=== PATIENT | male | born 1990 | race African-American/Black ===

== ENCOUNTER 2024-07-31 10:10 | Observation (INO) | payer OTHER ==
[2024-07-31 10:25] LABS: Glucose,Whole Blood 83 mg/dL (70-110)
--- NOTE | 2024-07-31 10:30 | ED ---
Seizure HPI - General Chief Complaint: Seizure Stated Complaint: Seizure Time Seen by Provider: 07/31/24 10:13 Source: patient, EMS, RN notes reviewed Mode of arrival: EMS Limitations: no limitations - History of Present Illness Initial Comments: 34-year-old male presents emergency department chief complaint of seizure. Patient checked into [facility] yesterday for alcohol abuse. He states he has not received any Ativan for his withdrawal symptoms. Patient states that he did bite his tongue. Patient has no history of seizures he is nondiabetic. Patient states his blood sugar this morning was 80. Patient states he is very nausea complaint of head discomfort. No visual strippings no focal weakness denies any hallucinations. Patient states he does not withdraw significantly when he does not drink. His last drink was yesterday. - Related Data Allergies Allergy/AdvReac Type Severity Reaction Status Date / Time No Known Allergies Allergy Verified 07/31/24 10:16 Review of Systems ROS Statement: Those systems with pertinent positive or pertinent negative responses have been documented in the HPI. ROS Other: All systems not noted in ROS Statement are negative. Past Medical History Past Medical History: Diabetes Mellitus, Hypertension Additional Past Medical History / Comment(s): pancreatitis, alcohol use History of Any Multi-Drug Resistant Organisms: None Reported Additional Past Surgical History / Comment(s): pancrease, tip of finger amputated Past Psychological History: No Psychological Hx Reported Smoking Status: Former smoker Past Alcohol Use History: Daily Past Drug Use History: None Reported General Exam Limitations: no limitations General appearance: alert, in no apparent distress Head exam: Present: atraumatic, normocephalic, normal inspection Eye exam: Present: normal appearance, PERRL, EOMI. Absent: scleral icterus, conjunctival injection, periorbital swelling ENT exam: Present: mucous membranes moist. Absent: normal oropharynx (Bite radha, laceration right side of tongue) Neck exam: Present: normal inspection, full ROM. Absent: tenderness, meningismus, lymphadenopathy Respiratory exam: Present: normal lung sounds bilaterally. Absent: respiratory distress, wheezes, rales, rhonchi, stridor Cardiovascular Exam: Present: normal rhythm, tachycardia, normal heart sounds. Absent: systolic murmur, diastolic murmur, rubs, gallop, clicks GI/Abdominal exam: Present: soft, normal bowel sounds. Absent: distended, tenderness, guarding, rebound, rigid Course Vital Signs 07/31/24 10:11 Temperature 98.1 F Pulse Rate 102 H Respiratory 18 Rate Blood Pressure 148/100 O2 Sat by Pulse 100 Oximetry Medical Decision Making - Medical Decision Making Was pt. sent in by a medical professional or institution (, SESAR, PROSTHODONTIST/EDUCATOR, urgent care, hospital, or senior living...) When possible be specific @ -[facility] Did you speak to anyone other than the patient for history (EMS, parent, family, police, friend...)? What history was obtained from this source @ -No Did you review nursing and triage notes (agree or disagree)? Why? @ -I reviewed and agree with nursing and triage notes Were old charts reviewed (outside hosp., previous admission, EMS record, old EKG, old radiological studies, urgent care reports/EKG's, senior living records)? Report findings @ -No old charts were reviewed Differential Diagnosis (chest pain, altered mental status, abdominal pain women, abdominal pain men, vaginal bleeding, weakness, fever, dyspnea, syncope, headache, dizziness, GI bleed, back pain, seizure, CVA, palpatations, mental he alth, musculoskeletal)? @ -Differential Seizure: Recurrent seizure disorder, febrile seizure, alcohol withdrawal, stimulants, meningitis, encephalitis, intercranial hemorrhage, intracranial tumor, stroke, eclampsia, thyrotoxicosis, hypocalcemia, hyponatremia, hypernatremia, hypomagnesemia, psychogenic, this is not meant to be an all-inclusive list. EKG interpreted by me (3pts min.). @ -As above X-rays interpreted by me (1pt min.). @ -None done CT interpreted by me (1pt min.). @ -CT brain showing no acute intracranial hemorrhage, no mass no mass effect U/S interpreted by me (1pt. min.). @ -None done What testing was considered but not performed or refused? (CT, X-rays, U/S, labs)? Why? @ -None What meds were considered but not given or refused? Why? @ -None Did you discuss the management of the patient with other professionals (professionals i.e. SESAR Santiago, PROSTHODONTIST/EDUCATOR, lab, RT, psych nurse, dialysis social worker, vp data, teacher, budget officer, keycase assembler)? Give summary @ -Dr. Meadows for admission Was smoking cessation discussed for >3mins.? @ -No Was critical care preformed (if so, how long)? @ -No Were there social determinants of health that impacted care today? How? (Homelessness, low income, unemployed, alcoholism, drug addiction, transportation, low edu. Level, literacy, decrease access to med. care, residential, rehab)? @ -No Was there de-escalation of care discussed even if they declined (Discuss DNR or withdrawal of care, Hospice)? DNR status @ -No What co-morbidities impacted this encounter? (DM, HTN, Smoking, COPD, CAD, Cancer, CVA, ARF, Chemo, Hep., AIDS, mental health diagnosis, sleep apnea, morbid obesity)? @ -Alcohol abuse Was patient admitted / discharged? Hospital course, mention meds given and route, prescriptions, significant lab abnormalities, going to OR and other pert inent info. @ -[Admitted patient presented for new onset seizure, most likely alcohol withdrawal seizure. Patient will be admitted for further observation, withdrawal, neurology evaluation Undiagnosed new problem with uncertain prognosis? @ -No Drug Therapy requiring intensive monitoring for toxicity (Heparin, Nitro, Insulin, Cardizem)? @ -No Were any procedures done? @ -No Diagnosis/symptom? @ -Alcohol withdrawal seizure Acute, or Chronic, or Acute on Chronic? @Acute Uncomplicated (without systemic symptoms) or Complicated (systemic symptoms)? @ -Complicated Side effects of treatment? @ -No Exacerbation, Progression, or Severe Exacerbation? @ -No Poses a threat to life or bodily function? How? (Chest pain, [place], NE, pneumonia, PE, COPD, DKA, ARF, appy, cholecystitis, CVA, Diverticulitis, Homicidal, Suicidal, threat to staff... and all critical care pts) @ -Yes alcohol withdrawal seizure - Lab Data Result diagrams: 07/31/24 10:33 07/31/24 10:33 Lab Results 07/31/24 07/31/24 07/31/24 Range/Units 10:19 10:33 10:33 WBC 4.6 (3.8-10.6) k/uL RBC 3.95 L (4.30-5.90) m/uL Hgb 13.5 (13.0-17.5) gm/dL Hct 41.5 (39.0-53.0) % MCV 105.1 H (80.0-100.0) fL MCH 34.3 (25.0-35.0) pg MCHC 32.6 (31.0-37.0) g/dL RDW 15.1 (11.5-15.5) % Plt Count 148 L (150-450) k/uL MPV 9.7 Neutrophils % 40 % Lymphocytes % 47 % Monocytes % 7 % Eosinophils % 2 % Basophils % 1 % Neutrophils # 1.8 (1.3-7.7) k/uL Lymphocytes # 2.1 (1.0-4.8) k/uL Monocytes # 0.3 (0-1.0) k/uL Eosinophils # 0.1 (0-0.7) k/uL Basophils # 0.0 (0-0.2) k/uL Macrocytosis Moderate Sodium 138 (137-145) mmol/L Potassium 3.7 (3.5-5.1) mmol/L Chloride 99 (98-107) mmol/L Carbon Dioxide 23 (22-30) mmol/L Anion Gap 16 mmol/L BUN 9 (9-20) mg/dL Creatinine 0.66 (0.66-1.25) mg/dL Est GFR (CKD-EPI)AfAm >90 (>60 ml/min/1.73 sqM) Est GFR (CKD-EPI)NonAf >90 (>60 ml/min/1.73 sqM) Glucose 67 L (74-99) mg/dL POC Glucose (mg/dL) 83 (70-110) mg/dL POC Glu Occupational Therapy Professor ID Sage Parker Calcium 10.0 (8.4-10.2) mg/dL Magnesium 1.5 L (1.6-2.3) mg/dL Total Bilirubin 2.1 H (0.2-1.3) mg/dL AST 130 H (17-59) U/L ALT 62 H (4-49) U/L Alkaline Phosphatase 212 H (38-126) U/L Total Protein 8.0 (6.3-8.2) g/dL Albumin 5.0 (3.5-5.0) g/dL Lipase 64 (23-300) U/L 07/31/24 07/31/24 Range/Units 11:45 12:33 WBC (3.8-10.6) k/uL RBC (4.30-5.90) m/uL Hgb (13.0-17.5) gm/dL Hct (39.0-53.0) % MCV (80.0-100.0) fL MCH (25.0-35.0) pg MCHC (31.0-37.0) g/dL RDW (11.5-15.5) % Plt Count (150-450) k/uL MPV Neutrophils % % Lymphocytes % % Monocytes % % Eosinophils % % Basophils % % Neutrophils # (1.3-7.7) k/uL Lymphocytes # (1.0-4.8) k/uL Monocytes # (0-1.0) k/uL Eosinophils # (0-0.7) k/uL Basophils # (0-0.2) k/uL Macrocytosis Sodium (137-145) mmol/L Potassium (3.5-5.1) mmol/L Chloride (98-107) mmol/L Carbon Dioxide (22-30) mmol/L Anion Gap mmol/L BUN (9-20) mg/dL Creatinine (0.66-1.25) mg/dL Est GFR (CKD-EPI)AfAm (>60 ml/min/1.73 sqM) Est GFR (CKD-EPI)NonAf (>60 ml/min/1.73 sqM) Glucose (74-99) mg/dL POC Glucose (mg/dL) 50 L 151 H (70-110) mg/dL POC Glu Occupational Therapy Professor ID Sage Parker Calcium (8.4-10.2) mg/dL Magnesium (1.6-2.3) mg/dL Total Bilirubin (0.2-1.3) mg/dL AST (17-59) U/L ALT (4-49) U/L Alkaline Phosphatase (38-126) U/L Total Protein (6.3-8.2) g/dL Albumin (3.5-5.0) g/dL Lipase (23-300) U/L - EKG Data -: EKG Interpreted by Me EKG Comments: Performed at 10: 17 sinus tachycardia rate of 106 [place] 151 QRS 98 QT/QTc 339/401 Disposition Clinical Impression: Alcohol withdrawal seizure Disposition: ADMITTED IP TO THIS [facility] Condition: Fair Referrals: None,Stated [REFERRING] - 1-2 days Time of Disposition: 12:54
[2024-07-31] MEDS: ONDANSETRON 4 MG/2 ML VIAL IVP STA (10:34)
[2024-07-31] MEDS: SODIUM CHLORIDE 0.9% 1,000 ML IV STA (10:34)
[2024-07-31] MEDS: LORazepam 2 MG/ML INJ IV STA (10:38)
[2024-07-31 10:40] LABS: Basophils % (A) 1 %; Eosinophils # (A) 0.1 k/uL (0-0.7); Eosinophils % (A) 2 %; HCT 41.5 % (39.0-53.0); HGB 13.5 gm/dL (13.0-17.5); Lymphocytes # (A) 2.1 k/uL (1.0-4.8); Lymphocytes % (A) 47 %; MCH 34.3 pg (25.0-35.0); MCHC 32.6 g/dL (31.0-37.0); MCV 105.1 fL (80.0-100.0); Macrocytosis Moderate; Mean Platelet Volume 9.7; Monocytes # (A) 0.3 k/uL (0-1.0); Monocytes % (A) 7 %; Neutrophils # (A) 1.8 k/uL (1.3-7.7); Neutrophils % (A) 40 %; Platelet Count 148 k/uL (150-450); RBC 3.95 m/uL (4.30-5.90); RDW 15.1 % (11.5-15.5); WBC 4.6 k/uL (3.8-10.6)
[2024-07-31] MEDS: KETOROLAC 15 MG/ML 1 ML VIAL IVP STA (10:51)
[2024-07-31] MEDS: levETIRAcetam IV 500 MG/5 ML VIAL IVP STA (11:00)
[2024-07-31 11:08] LABS: ALT 62 U/L (4-49); African American GFR (CKD) >90 (>60 ml/min/1.73 sqM); Anion Gap 16 mmol/L; Blood Urea Nitrogen 9 mg/dL (9-20); Carbon Dioxide 23 mmol/L (22-30); Chloride 99 mmol/L (98-107); Glucose 67 mg/dL (74-99); Lipase 64 U/L (23-300); Non-African American GFR(CKD) >90 (>60 ml/min/1.73 sqM); Sodium 138 mmol/L (137-145); Total Bilirubin 2.1 mg/dL (0.2-1.3)
[2024-07-31 11:22] LABS: AST 130 U/L (17-59); Alkaline Phosphatase 212 U/L (38-126); Magnesium 1.5 mg/dL (1.6-2.3); Potassium 3.7 mmol/L (3.5-5.1)
[2024-07-31 11:47] LABS: Glucose,Whole Blood 50 mg/dL (70-110)
--- NOTE | 2024-07-31 12:11 | CT ---
EXAMINATION TYPE: CT brain wo con DATE OF EXAM: 07/31/2024 COMPARISON: None CLINICAL INDICATION: Male, 34 years old with history of new onset seizures; [facility], TECHNIQUE: CT of the brain performed without contrast with sagittal and coronal reformats. Automated exposure control for dose reduction was used. FINDINGS: There is no acute intracranial hemorrhage, mass effect, or midline shift identified. The ventricles and sulci are within normal limits in size. The globes are intact and the visualized sinuses are osiel ar. IMPRESSION: No acute intracranial hemorrhage, mass effect, or midline shift is seen. [facility], , 07/31/2024 12:08 PM
[2024-07-31 12:35] LABS: Glucose,Whole Blood 151 mg/dL (70-110)
[2024-07-31] MEDS ORDERED: LORazepam 2 MG/ML INJ IV PRN ×3 (12:51)
[2024-07-31] MEDS ORDERED: LORazepam 0.5 MG TAB PO PRN (12:51)
[2024-07-31] MEDS ORDERED: NALOXONE 0.4 MG/ML 1 ML VIAL IV PRN (12:55)
[2024-07-31] MEDS ORDERED: ONDANSETRON 4 MG/2 ML VIAL IVP PRN (12:55)
[2024-07-31] MEDS ORDERED: DEXTROSE 50% SYRINGE 50 ML IVP PRN ×4 (13:11→16:45)
[2024-07-31] MEDS: MAGNESIUM OXIDE 400 MG TAB PO STA (13:26)
[2024-07-31] MEDS: THIAMINE 100 MG/ML 2 ML VIAL IM STA (13:35)
[2024-07-31] MEDS: IBUPROFEN 400 MG TAB PO PRN (14:48)
--- NOTE | 2024-07-31 15:09 | P.HPIM ---
History of Present Illness H&P Date: 07/31/24 History of Presenting Illness: Patient is a 34-year-old male with a past medical history of daily alcohol abuse, chronic pancreatitis, hypertension, and insulin-dependent diabetes mellitus. He reports baseline drinking 1-2 fifths of alcohol daily but reports cut back recently and only drinking a fifth of liquor daily with last drink being yesterday when he checked into [place]. Patient was admitted to [facility] and had his blood sugar checked which was 80 but he was feeling slightly nauseous with some mild headache so he sat down and was witnessed to have tonic-clonic seizure-like activity lasting a reported 4 minutes duration and EMS was called for transport to the hospital for evaluation. Patient denies experiencing involuntary loss of bowel or bladder during this activity but did bite his tongue and right side of his cheek. Patient currently denies having any headache, lightheadedness, changes in vision or hearing, chest pain, p alpitations, shortness of breath, or experiencing any numbness/tingling/weakness in his extremities. Patient reports mild nausea and states my stomach feels a little upset like my pancreas is acting up again. He denies any episodes of vomiting. Upon arrival to our facility patient underwent evaluation in the emergency department. Vital signs upon arrival show blood pressure 140, heart rate 102, respiratory rate 18, temp 98.1 F, and SpO2 100% on room air. EKG completed showing sinus tachycardia at 106 bpm with nonspecific T wave changes and no noted ST abnormalities upon personal review and interpretation. CT brain completed negative for acute intercranial process. Pleated and reviewed. CBC showing macrocytosis with MCV of 105.1 and thrombocytopenia with platelet count of 148. Blood glucose initially 83 at time of arrival, CBC showing low glucose of 67. Magnesium also low at 1.5. Liver profile showing hyperbilirubinemia with bilirubin of 2.1 and transaminitis with AST of 130, ALT of 62, and alkaline phosphatase of 212. Lipase normal findings at 64. Patient admitted under our services for alcohol withdrawal seizure and to undergo medically assisted detox. Review of systems: Pertinent positives and negatives as discussed in HPI, a complete review of systems was performed and all other systems are negative. Physical exam: Vital signs reviewed and stable. General: Nontoxic, no distress and appears stated age. Derm: Skin warm and dry, normal coloration for ethnicity. Head: Atraumatic, normocephalic and symmetric. Eyes: EOM's intact, no lid lag, and anicteric sclera Mouth: no lip lesions, mucus membranes moist. Patient has small abrasion/bite wound to right lateral side of tongue. Cardiovascular: regular rate and rhythm with normal S1S2, no murmur, positive posterior tibial pulses bilaterally, and cap refill < 2 seconds. Lungs: Respirations even, regular, and unlabored on room air. Lungs CTA bilaterally, no rhonchi, no rales, no wheezing, and no accessory muscle usage. Abdominal: soft, nontender to palpation, no guarding, no appreciable organomegaly Ext: ROM intact. No gross muscle atrophy, no edema, no contractures Neuro: Speech clear, face symmetrical and CN II-XII grossly intact with no noted focal neuro deficits Psych: Alert and oriented to person, place, time, and situation. Appropriate and pleasant affect. Assessment and Plan of Care: Alcohol withdraw in active alcoholic Alcohol withdrawal seizure Transaminitis with hyperbilirubinemia, secondary to above Hypomagnesemia -Order placed for monitoring of CIWA scores and patient to be medicated with Ativan 0.5 mg every 4 hours as needed for CIWA score of 4-5, Ativan 1 mg every 4 hours for CIWA score of 6-7, Ativan 2 mg every 3 hours CIWA score of 8-9, and Ativan 2 mg every 2 hours forr CIWA score of 10 or greater.. -Thiamine 100 mg daily, and Multivitamin daily, and Folate 1 mg daily -Seizure, fall, and aspiration precautions in place. -Continued close monitoring of electrolytes and replace as needed. -Telemetry monitoring. -Patient was given loading dose of Keppra 1000 mg in the emergency department, denies history of seizures. Likely due to alcohol withdraw as reports last drink yesterday. Patient placed on CIWA protocol but stated above with use of benzodiazepines for symptom triggered management. Insulin-dependent diabetes mellitus with hypoglycemia -Hold Lantus at this time and place patient on glycemic protocol with NovoLog sliding scale. Continue blood glucose checks every 4 hours for the next 12 hours if no further episodes of hypoglycemia may resume blood glucose checks ACHS. Hypertension -Continue daily medication regimen with amlodipine 10 mg daily, and clonidine 0.2 mg every 4 hours as needed for systolic pressure greater than 180 and diastolic greater than 110. Data and imaging reviewed: As stated above in HPI CODE STATUS: Full code DVT prophylaxis: Lovenox Anticipated discharge date: Pending clinical course Anticipated discharge place: Return to [facility] Patient was seen independently by Nurse Practitioner. This document was prepared using [id number] dictation software. Please allow for errors in release and technical records clerk while rare they do occur. Antoine Anand NP rendered care for this patient independently, reviewed the findings and plan as documented in the note above and agree with plan. I did not physically speak with or examine the patient on this date. Past Medical History Past Medical History: Diabetes Mellitus, Hypertension Additional Past Medical History / Comment(s): pancreatitis, alcohol use History of Any Multi-Drug Resistant Organisms: None Reported Additional Past Surgical History / Comment(s): pancrease, tip of finger amputated Past Psychological History: No Psychological Hx Reported Smoking Status: Former smoker Past Alcohol Use History: Daily Past Drug Use History: None Reported Medications and Allergies Home Medications Medication Instructions Recorded Confirmed Type Acetaminophen Tab [Tylenol] 650 mg PO Q4H 07/31/24 07/31/24 History Calcium Phos/D3/Magnesium/Zinc 1 tab PO TID PRN 07/31/24 07/31/24 History [Visgwkj-Oxs-Oosg-Vitamin D3] Chlorpheniramine Maleate 4 mg PO Q4H PRN 07/31/24 07/31/24 History [Chlor-Trimeton] Clobetasol Propionate [Temovate 1 applic TOPICAL BID 07/31/24 07/31/24 History 0.05% Cream] Hyoscyamine Sulfate [Levsin] 0.125 mg PO QID PRN 07/31/24 07/31/24 History Ibuprofen [Motrin Ib] 600 mg PO Q6H PRN 07/31/24 07/31/24 History Insulin Glargine [Lantus Vial] 15 unit SQ HS 07/31/24 07/31/24 History Insulin Regular, Human [NovoLIN R] See Protocol SQ ACHS 07/31/24 07/31/24 H istory Lipase/Protease/Amylase [Margoth Perry 36,000 units PO TID-W/MEALS 07/31/24 07/31/24 History 12,000 Units Capsule] Loperamide [Imodium] 4 mg PO QID PRN 07/31/24 07/31/24 History Melatonin 10 mg PO HS 07/31/24 07/31/24 History Multivitamins, Thera [Multivitamin 1 tab PO DAILY 07/31/24 07/31/24 History (formulary)] Mylanta 30 ml PO Q4H PRN 07/31/24 07/31/24 History Ondansetron [Zofran] 4 mg PO Q6H PRN 07/31/24 07/31/24 History Thiamine [Vitamin B-1] 100 mg PO DAILY 07/31/24 07/31/24 History amLODIPine [Norvasc] 10 mg PO DAILY 07/31/24 07/31/24 History cloNIDine HCL [Catapres] 0.1 - 0.3 mg PO Q4H PRN 07/31/24 07/31/24 History traZODone HCL [Desyrel] 50 - 150 mg PO HS PRN 07/31/24 07/31/24 History Allergies Allergy/AdvReac Type Severity Reaction Status Date / Time No Known Allergies Allergy Verified 07/31/24 14:14 Physical Exam Vitals: Vital Signs Temp Pulse Resp BP Pulse Ox 07/31/24 15:00 89 20 128/93 98 07/31/24 14:00 90 17 125/90 98 07/31/24 13:00 98 F 87 15 135/87 07/31/24 12:00 89 17 118/79 07/31/24 11:00 87 16 145/97 100 07/31/24 10:28 97 10 L 139/92 07/31/24 10:11 98.1 F 102 H 18 148/100 100 Intake and Output 07/31/24 07/31/24 07/31/24 06:59 14:59 22:59 Output Total 700 Balance -700 Output: Urine 700 Other: Weight 67.132 kg Results CBC & Chem 7: 07/31/24 10:33 07/31/24 10:33 Labs: Abnormal Lab Results - Last 24 Hours (Table) 07/31/24 07/31/24 07/31/24 Range/Units 10:33 10:33 11:45 RBC 3.95 L (4.30-5.90) m/uL MCV 105.1 H (80.0-100.0) fL Plt Count 148 L (150-450) k/uL Glucose 67 L (74-99) mg/dL POC Glucose (mg/dL) 50 L (70-110) mg/dL Magnesium 1.5 L (1.6-2.3) mg/dL Total Bilirubin 2.1 H (0.2-1.3) mg/dL AST 130 H (17-59) U/L ALT 62 H (4-49) U/L Alkaline Phosphatase 212 H (38-126) U/L //24 Range/Units 12:33 RBC (4.30-5.90) m/uL MCV (80.0-100.0) fL Plt Count (150-450) k/uL Glucose (74-99) mg/dL POC Glucose (mg/dL) 151 H (70-110) mg/dL Magnesium (1.6-2.3) mg/dL Total Bilirubin (0.2-1.3) mg/dL AST (17-59) U/L ALT (4-49) U/L Alkaline Phosphatase (38-126) U/L
[2024-07-31] MEDS ORDERED: cloNIDine HCL 0.2 MG TAB PO PRN (15:10)
[2024-07-31] MEDS ORDERED: HYOSCYAMINE SULFATE 0.125 MG TAB PO PRN (15:10)
[2024-07-31 17:47] LABS: Glucose,Whole Blood 187 mg/dL (70-110)
[2024-07-31] MEDS: MAGNESIUM SULFATE-D5W PMX 1 GM in DEXTROSE/WATER 1 100ML.BAG IVPB SCH (17:51)
[2024-07-31] MEDS: LACTATED RINGERS 1,000 ML IV SCH (17:51)
[2024-07-31] MEDS: LIPASE 20,000/PROTEASE 63,000/AMYLASE 84,000 PO SCH (17:53)
[2024-07-31] MEDS: INSULIN ASPART (NovoLOG) 100 UNIT/ML VIAL SQ SCH (17:57)
[2024-07-31 20:53] LABS: Glucose,Whole Blood 311 mg/dL (70-110)
[2024-07-31] MEDS: traZODone HCL 50 MG TAB PO PRN (23:07)
[2024-07-31] MEDS: MELATONIN 5 MG TABLET PO SCH (23:07)
[2024-08-01 06:19] LABS: Glucose,Whole Blood 203 mg/dL (70-110)
[2024-08-01] MEDS: MULTIVITAMINS, THERA 1 EACH TAB PO SCH (08:11)
[2024-08-01] MEDS: FOLIC ACID 1 MG TAB PO SCH (08:11)
[2024-08-01] MEDS: THIAMINE 100 MG TAB PO SCH (08:11)
[2024-08-01] MEDS: ENOXAPARIN 40 MG/0.4 ML SYRINGE SQ SCH (08:12)
[2024-08-01] MEDS: amLODIPine 10 MG TAB PO SCH (08:12)
[2024-08-01] MEDS ORDERED: THIAMINE 100 MG TAB PO SCH (09:00)
--- NOTE | 2024-08-01 10:17 | P.CNNES ---
History of Present Illness Consult date: 08/01/24 Requesting physician: Dillon Randall Reason for Consult: seizure History of Present Illness: This is a 34-year-old gentleman with a history of significant alcohol use presents to the emergency department on 07/31/2024 from [facility] because of seizure-like activity. He went to [place] [facility] this Friday and it seems that yesterday he had a seizure-like activity. He states that he had minimal drink on Friday before going to [place]. Then the next day after breakfast he just had a seizure-like activity that he was notified and he is unsure of the event. He felt like he bit the side of the tongue on the right side. Denies any urinary or bowel incontinence. Denies any aura prior to the episode. Denies any seizure in the past. He states that he drinks about a pint to 1/5 a day. He is unaware of his family history since he is adopted. Again he denies any history of seizure that he had in the past. He feels he is doing well. Denies any focal deficit. Some of the workup during this hospital visit consisted of: Serum glucose is 67 and his lowest POC glucose was 50. AST is 130 ALT is 62. Sodium 138 Magnesium is 1.5. Which is minimally low CT of the head is reported as no acute intracranial hemorrhage, mass effect or midline shift. I personally reviewed the CT and agree with the report. Review of Systems per HPI. Past Medical History Past Medical History: Diabetes Mellitus, Hypertension Additional Past Medical History / Comment(s): pancreatitis, alcohol use History of Any Multi-Drug Resistant Organisms: None Reported Additional Past Surgical History / Comment(s): pancrease, tip of finger amputated Past Anesthesia/Blood Transfusion Reactions: No Reported Reaction Past Psychological History: No Psychological Hx Reported Smoking Status: Former smoker Past Alcohol Use History: Daily Past Drug Use History: None Reported Medications and Allergies Home Medications Medication Instructions Recorded Confirmed Type Acetaminophen Tab [Tylenol] 650 mg PO Q4H 07/31/24 07/31/24 History Calcium Phos/D3/Magnesium/Zinc 1 tab PO TID PRN 07/31/24 07/31/24 History [Dlwdgbk-Bde-Sivo-Vitamin D3] Chlorpheniramine Maleate 4 mg PO Q4H PRN 07/31/24 07/31/24 History [Chlor-Trimeton] Clobetasol Propionate [Temovate 1 applic TOPICAL BID 07/31/24 07/31/24 History 0.05% Cream] Hyoscyamine Sulfate [Levsin] 0.125 mg PO QID PRN 07/31/24 07/31/24 History Ibuprofen [Motrin Ib] 600 mg PO Q6H PRN 07/31/24 07/31/24 History Insulin Glargine [Lantus Vial] 15 unit SQ HS 07/31/24 07/31/24 History Insulin Regular, Human [NovoLIN R] See Protocol SQ ACHS 07/31/24 07/31/24 History Lipase/Protease/Amylase [Margoth Perry 36,000 units PO TID-W/MEALS 07/31/24 07/31/24 History 12,000 Units Capsule] Loperamide [Imodium] 4 mg PO QID PRN 07/31/24 07/31/24 History Melatonin 10 mg PO HS 07/31/24 07/31/24 History Multivitamins, Thera [Multivitamin 1 tab PO DAILY 07/31/24 07/31/24 History (formulary)] Mylanta 30 ml PO Q4H PRN 07/31/24 07/31/24 History Ondansetron [Zofran] 4 mg PO Q6H PRN 07/31/24 07/31/24 History Thiamine [Vitamin B-1] 100 mg PO DAILY 07/31/24 07/31/24 History amLODIPine [Norvasc] 10 mg PO DAILY 07/31/24 07/31/24 History cloNIDine HCL [Catapres] 0.1 - 0.3 mg PO Q4H PRN 07/31/24 07/31/24 History traZODone HCL [Desyrel] 50 - 150 mg PO HS PRN 07/31/24 07/31/24 History Allergies Allergy/AdvReac Type Severity Reaction Status Date / Time No Known Allergies Allergy Verified 07/31/24 14:14 Physical Examination - Vital Signs Vital Signs: Vital Signs Temp Pulse Pulse Resp BP BP Pulse Ox 08/01/24 06:55 98.1 F 68 17 127/86 100 08/01/24 01:10 98.3 F 78 17 112/71 98 07/31/24 20:17 98.9 F 91 18 149/99 100 07/31/24 20:01 89 18 134/93 100 07/31/24 16:00 97.8 F 96 19 127/93 07/31/24 15:00 89 20 128/93 98 07/31/24 14:00 90 17 125/90 98 07/31/24 13:00 98 F 87 15 135/87 07/31/24 12:00 89 17 118/79 07/31/24 11:00 87 16 145/97 100 07/31/24 10:28 97 10 L 139/92 07/31/24 10:11 98.1 F 102 H 18 148/100 100 Intake and Output 07/31/24 08/01/24 08/01/24 22:59 06:59 14:59 Output Total 1100 Balance -1100 Output: Urine 1100 Other: # Voids 1 Weight 67.132 kg GENERAL: The patient is lying in bed and is not in acute distress. NEUROLOGICAL: Higher mental function: The patient is awake, alert, oriented to self, place and time. Patient is following commands. No aphasia and no neglect. Cranial nerves: The pupils are round, equal and reactive to light and accommodation. Visual whatley are full to confrontation throughout. Extraocular movement is intact no nystagmus is noted. Facial sensation is normal to touch throughout. The facial strength is normal throughout. Hearing is normal bilaterally to hand rub. Tongue is midline and moved [id number] without any difficulty. Has minimal tongue bite on the right lateral side. No dysarthria is noted. Shoulder shrug is normal bilaterally. Motor: The strength is 5 over 5 throughout. Normal tone and bulk. Cerebellum: Normal finger to nose heel to aquino bilaterally. Sensation: Sensation is normal to touch throughout. Reflexes (right/left): 2+ throughout. Plantars are downgoing bilaterally. Results - Laboratory Findings CBC and BMP: 07/31/24 10:33 07/31/24 10:33 Abnormal Lab Findings: Abnormal Labs 07/31/24 07/31/24 07/31/24 10:33 10:33 11:45 RBC 3.95 L MCV 105.1 H Plt Count 148 L Glucose 67 L POC Glucose (mg/dL) 50 L Magnesium 1.5 L Total Bilirubin 2.1 H AST 130 H ALT 62 H Alkaline Phosphatase 212 H 07/31/24 07/31/24 07/31/24 12:33 17:46 20:51 RBC MCV Plt Count Glucose POC Glucose (mg/dL) 151 H 187 H 311 H Magnesium Total Bilirubin AST ALT Alkaline Phosphatase 08/01/24 06:18 RBC MCV Plt Count Glucose POC Glucose (mg/dL) 203 H Magnesium Total Bilirubin AST ALT Alkaline Phosphatase Assessment and Plan Assessment: This is a 34-year-old gentleman who presents from [place] on 07/31/2024 for seizure-like activity. Patient has significant alcohol use and drinks about a pint to 1/5 a day. She has glucose as low as 50 POC with minimal low magnesium. New onset seizure and this seems provoked due to alcohol withdrawal as well as due to hypoglycemia. His minimal hypomagnesemia is not low enough to provoke the seizure. Hyperglycemia Minimal hypomagnesemia Transaminitis AST more than ALT due to alcohol use Significant alcohol use Plan: I ordered phosphorus level. If low defer correction to primary team. Ordered alcohol level since was not obtained on presentation. Patient was given Keppra 1 g in the ED. I will not start the patient on antiseizure medication since this seems more provoked I would not pursue with EEG since this seems more provoked seizure but if he continues to have seizure then recommend to pursue with the EEG Patient is on Ativan for CIWA protocol. Seizure precautions seizure pads Per the [place] DM because of the seizure, to avoid driving for 6 months until seizure-free, avoid heights, avoid swimming assisted or using heavy machinery. Patient is on thiamine Avoid any further hypoglycemic events. Will defer the rest of the medical management to primary other specialist. Discussed with the patient and his nurse Thank you for the consultation. There is no further neurological workup. Will sign off. Please reconsult if needed. Time with Patient: Greater than 30
[2024-08-01] MEDS: LORazepam 1 MG TAB PO PRN (10:49)
[2024-08-01] MEDS: ACETAMINOPHEN TAB 325 MG TAB PO PRN (10:51)
[2024-08-01 11:40] LABS: Glucose,Whole Blood 219 mg/dL (70-110)
[2024-08-01 12:32] LABS: Alcohol <10 mg/dL; Phosphorus 4.4 mg/dL (2.5-4.5)
[2024-08-01 16:41] LABS: Glucose,Whole Blood 162 mg/dL (70-110)
--- NOTE | 2024-08-01 16:59 | P.PN ---
Subjective Progress Note Date: 08/01/24 Hospital course: Patient is a 34-year-old male with a past medical history of daily alcohol abuse, chronic pancreatitis, hypertension, and insulin-dependent diabetes mellitus. He reports baseline drinking 1-2 fifths of alcohol daily but reports cut back recently and only drinking a fifth of liquor daily with last drink being yesterday when he checked into [place]. Patient was admitted to [place] and had his blood sugar checked which was 80 but he was feeling slightly nauseous with some mild headache so he sat down and was witnessed to have tonic-clonic seizure-like activity lasting a reported 4 minutes duration and EMS was called for transport to the hospital for evaluation. Patient denies experiencing involuntary loss of bowel or bladder during this activity but did bite his tongue and right side of his cheek. Patient currently denies having any headache, lightheadedness, changes in vision or hearing, chest pain, palpitations, shortness of breath, or experiencing any numbness/tingling/weakness in his extremities. Patient reports mild nausea and states my stomach feels a little upset like my pancreas is acting up again. He denies any episodes of vomiting. Upon arrival to our facility patient underwent evaluation in the emergency department. Vital signs upon arrival show blood pressure 140, heart rate 102, respiratory rate 18, temp 98.1 F, and SpO2 100% on room air. EKG completed showing sinus tachycardia at 106 bpm with nonspecific T wave changes and no noted ST abnormalities upon personal review and interpretation. CT brain completed negative for acute intercranial process. Labs completed and and reviewed. CBC showing macrocytosis with MCV of 105.1 and thrombocytopenia with platelet count of 148. Blood glucose initially 83 at time of arrival, CBC showing low glucose of 67. Magnesium also low at 1.5. Liver profile showing hyperbilirubinemia with bilirubin of 2.1 and transaminitis with AST of 130, ALT of 62, and alkaline phosphatase of 212. Lipase normal findings at 64. Patient admitted under our services for alcohol withdrawal seizure and to undergo medically assisted detox. Physical exam: Patient seen and fully evaluated at bedside this morning. He reports feeling slightly anxious and jittery, otherwise denies having any complaints at this time. Patient has had no further episodes of seizure activity since admission. Will continue to monitor with plans to discharge back to [place] in the morning. Vital signs reviewed and stable. General: Nontoxic, no distress and appears stated age. Derm: Skin warm and dry, normal coloration for ethnicity. Head: Atraumatic, normocephalic and symmetric. Eyes: EOM's intact, no lid lag, and anicteric sclera Mouth: no lip lesions, mucus membranes moist. Patient has small abrasion/bite wound to right lateral side of tongue. Cardiovascular: regular rate and rhythm with normal S1S2, no murmur, positive posterior tibial pulses bilaterally, and cap refill < 2 seconds. Lungs: Respirations even, regular, and unlabored on room air. Lungs CTA bilaterally, no rhonchi, no rales, no wheezing, and no accessory muscle usage. Abdominal: soft, nontender to palpation, no guarding, no appreciable organom egaly Ext: ROM intact. No gross muscle atrophy, no edema, no contractures Neuro: Speech clear, face symmetrical and CN II-XII grossly intact with no noted focal neuro deficits Psych: Alert and oriented to person, place, time, and situation. Appropriate and pleasant affect. Assessment and Plan of Care: Alcohol withdraw in active alcoholic Alcohol withdrawal seizure Transaminitis with hyperbilirubinemia, secondary to above Hypomagnesemia -Continue monitoring of CIWA scores and patient to be medicated with Ativan 0.5 mg every 4 hours as needed for CIWA score of 4-5, Ativan 1 mg every 4 hours for CIWA score of 6-7, Ativan 2 mg every 3 hours CIWA score of 8-9, and Ativan 2 mg every 2 hours forr CIWA score of 10 or greater.. -Thiamine 100 mg daily, and Multivitamin daily, and Folate 1 mg daily -Seizure, fall, and aspiration precautions in place. -Continued close monitoring of electrolytes and replace as needed. -Telemetry monitoring. -Patient was given loading dose of Keppra 1000 mg in the emergency department, denies history of seizures. Likely due to alcohol withdraw as reports last drink 24 hours prior. Patient placed on CIWA protocol and as stated above with use of benzodiazepines for symptom triggered management. Will hold off on starting patient on any further antiepileptic medications at this time. -Following, discussed case with Dr. Walls. Insulin-dependent diabetes mellitus with hypoglycemia -Glycemia resolved. Patient currently hyperglycemic. -Resume Lantus 15 units nightly and continue glycemic protocol with NovoLog sliding scale. Hypertension -Continue daily medication regimen with amlodipine 10 mg daily, and clonidine 0.2 mg every 4 hours as needed for systolic pressure greater than 180 and diastolic greater than 110. Data and imaging reviewed: Labs completed and and reviewed. CBC showing macrocytosis with MCV of 105.1 and thrombocytopenia with platelet count of 148. Magnesium also low at 1.5. Liver profile showing hyperbilirubinemia with bilirubin of 2.1 and transaminitis with AST of 130, ALT of 62, and alkaline phosphatase of 212. Lipase normal findings at 64. Blood glucose 203. -Vital signs reviewed. Blood pressure 127/86, heart rate 68, respiratory rate 17, temp 98.1 F, and SpO2 100% on room air. CODE STATUS: Full code DVT prophylaxis: Lovenox Anticipated discharge date: Pending clinical course Anticipated discharge place: Return to [place] Patient was seen independently by Nurse Practitioner. This document was prepared using [employer] dictation software. Please allow for errors in measurement department chief clerk while rare they do occur. Antoine Anand NP rendered care for this patient independently, reviewed the findings and plan as documented in the note above and agree with plan. I did not physically speak with or examine the patient on this date. Objective - Vital Signs Vital signs: Vital Signs Temp 98.1 F 08/01/24 06:55 Pulse 68 08/01/24 06:55 Resp 17 08/01/24 06:55 BP 127/86 08/01/24 06:55 Pulse Ox 100 08/01/24 06:55 FiO2 Intake & Output 07/31/24 08/01/24 08/01/24 18:59 06:59 18:59 Output Total 700 400 Balance -700 -400 Weight 67.132 kg 67.132 kg Output: Urine 700 400 Other: # Voids 1 - Labs CBC & Chem 7: 07/31/24 10:33 07/31/24 10:33 Labs: Abnormal Lab Results - Last 24 Hours (Table) 07/31/24 07/31/24 07/31/24 Range/Units 10:33 10:33 11:45 RBC 3.95 L (4.30-5.90) m/uL MCV 105.1 H (80.0-100.0) fL Plt Count 148 L (150-450) k/uL Glucose 67 L (74-99) mg/dL POC Glucose (mg/dL) 50 L (70-110) mg/dL Magnesium 1.5 L (1.6-2.3) mg/dL Total Bilirubin 2.1 H (0.2-1.3) mg/dL AST 130 H (17-59) U/L ALT 62 H (4-49) U/L Alkaline Phosphatase 212 H (38-126) U/L 07/31/24 07/31/24 07/31/24 Range/Units 12:33 17:46 20:51 RBC (4.30-5.90) m/uL MCV (80.0-100.0) fL Plt Count (150-450) k/uL Glucose (74-99) mg/dL POC Glucose (mg/dL) 151 H 187 H 311 H (70-110) mg/dL Magnesium (1.6-2.3) mg/dL Total Bilirubin (0.2-1.3) mg/dL AST (17-59) U/L ALT (4-49) U/L Alkaline Phosphatase (38-126) U/L 08/01/24 Range/Units 06:18 RBC (4.30-5.90) m/uL MCV (80.0-100.0) fL Plt Count (150-450) k/uL Glucose (74-99) mg/dL POC Glucose (mg/dL) 203 H (70-110) mg/dL Magnesium (1.6-2.3) mg/dL Total Bilirubin (0.2-1.3) mg/dL AST (17-59) U/L ALT (4-49) U/L Alkaline Phosphatase (38-126) U/L
[2024-08-01 20:39] LABS: Glucose,Whole Blood 328 mg/dL (70-110)
[2024-08-01] MEDS: INSULIN DETEMIR (LEVEMIR) 100 UNIT/ML SYR SQ SCH (21:08)
[2024-08-01] MEDS: BENZOCAINE 20 % GEL 11.9 GM TUBE MM PRN (21:37)
[2024-08-02 01:56] VITALS: TEMP 98.3
[2024-08-02 06:22] LABS: Glucose,Whole Blood 133 mg/dL (70-110)
[2024-08-02 07:39] VITALS: BP 118/88; PULSE 80; RESP 18
[2024-08-02 09:09] LABS: HCT 37.4 % (39.6-50.0); HGB 12.8 g/dL (13.0-17.0); MCHC 34.2 g/dL (32.0-37.0); MCV 99.5 FL (80.0-97.0); NRBC Per 100 WBC 0 X 10*3/uL (0.00-0.01); Platelet Count 98 X 10*3/uL (140-440); RBC 3.76 X 10*6/uL (4.40-5.60); RDW 14.1 % (11.5-14.5); WBC 5.44 X 10*3/uL (4.50-10.00)
[2024-08-02 09:15] LABS: ALT 163 U/L (10-49); AST 447 U/L (14-35); Albumin 4.3 g/dL (3.8-4.9); Albumin/Globulin Ratio 1.65 Ratio (1.60-3.17); Alkaline Phosphatase 306 U/L (41-126); BUN/Creat Ratio 11.43 Ratio (12.00-20.00); Calcium 9.2 mg/dL (8.7-10.3); Carbon Dioxide 22.9 mmol/L (21.6-31.8); Chloride 102 mmol/L (96-109); Globulin 2.6 g/dL (1.6-3.3); Glucose 203 mg/dL (70-110); Potassium 4.5 mmol/L (3.5-5.5); Sodium 136 mmol/L (135-145); Total Bilirubin 1.4 mg/dL (0.3-1.2); Total Protein 6.9 g/dL (6.2-8.2)
--- NOTE | 2024-08-02 09:32 | P.DS ---
Providers Date of admission: 07/31/24 12:47 Expected date of discharge: 08/02/24 Attending physician: Zacarias Meadows Consults: 07/31/24 12:55 Consult Physician Routine Consulting Provider: Guevara Walls Consult Reason/Comments: seizure Do you want consulting provider notified?: Yes Primary care physician: Physician Nonstaff Hospital Course: Discharge Diagnosis: Alcohol withdraw in active alcoholic Alcohol withdrawal seizure Transaminitis with hyperbilirubinemia, secondary to above Hypomagnesemia. Resolved. Insulin-dependent diabetes mellitus with hypoglycemia Hypertension Hospital course: Patient is a 34-year-old male with a past medical history of daily alcohol abuse, chronic pancreatitis, hypertension, and insulin-dependent diabetes mellitus. He reports baseline drinking 1-2 fifths of alcohol daily but reports cut back recently and only drinking a fifth of liquor daily with last drink being yesterday when he checked into [facility]. Patient was admitted to [facility] and had his blood sugar checked which was 80 but he was feeling slightly nauseous with some mild headache so he sat down and was witnessed to have tonic-clonic seizure-like activity lasting a reported 4 minutes duration and EMS was called for transport to the hospital for evaluation. Patient denies experiencing involuntary loss of bowel or bladder during this activity but did bite his tongue and right side of his cheek. Patient currently denies having any headache, lightheadedness, changes in vision or hearing, chest pain, palpitations, shortness of breath, or experiencing any numbness/tingling/weaknes s in his extremities. Patient reports mild nausea and states my stomach feels a little upset like my pancreas is acting up again. He denies any episodes of vomiting. Upon arrival to our facility patient underwent evaluation in the emergency department. Vital signs upon arrival show blood pressure 140, heart rate 102, respiratory rate 18, temp 98.1 F, and SpO2 100% on room air. EKG completed showing sinus tachycardia at 106 bpm with nonspecific T wave changes and no noted ST abnormalities upon personal review and interpretation. CT brain completed negative for acute intercranial process. Labs completed and and reviewed. CBC showing macrocytosis with MCV of 105.1 and thrombocytopenia with platelet count of 148. Blood glucose initially 83 at time of arrival, CBC showing low glucose of 67. Magnesium also low at 1.5. Liver profile showing hyperbilirubinemia with bilirubin of 2.1 and transaminitis with AST of 130, ALT of 62, and alkaline phosphatase of 212. Lipase normal findings at 64. Patient admitted under our services for alcohol withdrawal seizure and to undergo medically assisted detox. Patient was given loading dose of Keppra 1000 mg in the emergency department, denies history of seizures. Likely due to alcohol withdraw as reports last drink 24 hours prior. Patient placed on CIWA protocol and as stated above with use of benzodiazepines for symptom triggered man agement. Will hold off on starting patient on any further antiepileptic medications at this time. Patient was evaluated by neurologist in agreement with holding off and not starting patient on scheduled antiepileptic medications at this time. Patient underwent medical management for alcohol withdrawal. He had no further seizure activity. Patient free from any complaints at this time. He has been medically optimized and cleared to return to [facility]. Neurology also provided clearance for patient to return to [facility] for drug and alcohol rehab. Physical exam: Vital signs reviewed and stable. General: Nontoxic, no distress and appears stated age. Derm: Skin warm and dry, normal coloration for ethnicity. Head: Atraumatic, normocephalic and symmetric. Eyes: EOM's intact, no lid lag, and anicteric sclera Mouth: no lip lesions, mucus membranes moist. Patient has small abrasion/bite wound to right lateral side of tongue. Cardiovascular: regular rate and rhythm with normal S1S2, no murmur, positive posterior tibial pulses bilaterally, and cap refill < 2 seconds. Lungs: Respirations even, regular, and unlabored on room air. Lungs CTA bilaterally, no rhonchi, no rales, no wheezing, and no accessory muscle usage. Abdominal: soft, nontender to palpation, no guarding, no appreciable organomegaly Ext: ROM intact. No gross muscle atrophy, no edema, no contractures Neuro: Speech clear, face symmetrical and CN II-XII grossly intact with no noted focal neuro deficits Psych: Alert and oriented to person, place, time, and situation. Appropriate and pleasant affect. A total of 34 minutes of time were spent preparing this complex discharge summary. Pt was discharged on 08/02/2024 at 9:31 AM Patient was seen independently by Nurse Practitioner. This document was prepared using [employer] dictation software. Please allow for errors in senior sharepoint architect while rare they do occur. Antoine Anand NP rendered care for this patient independently, reviewed the findings and plan as documented in the note above. I did not physically speak with or examine the patient on this date. Patient Condition at Discharge: Stable Plan - Discharge Summary Discharge Rx Participant: No New Discharge Prescriptions: Continue Mylanta 30 ml PO Q4H PRN PRN Reason: Gi Upset amLODIPine [Norvasc] 10 mg PO DAILY Calcium Phos/D3/Magnesium/Zinc [Metoyje-Jie-Xjgw-Vitamin D3] 1 tab PO TID PRN PRN Reason: Muscle cramps cloNIDine HCL [Catapres] 0.1 - 0.3 mg PO Q4H PRN PRN Reason: bp greater than 160/100 Hyoscyamine Sulfate [Levsin] 0.125 mg PO QID PRN PRN Reason: Gi Upset Ibuprofen [Motrin Ib] 600 mg PO Q6H PRN PRN Reason: Pain Insulin Glargine [Lantus Vial] 15 unit SQ HS Melatonin 10 mg PO HS Multivitamins, Thera [Multivitamin (formulary)] 1 tab PO DAILY traZODone HCL [Desyrel] 50 - 150 mg PO HS PRN PRN Reason: Insomnia Acetaminophen Tab [Tylenol] 650 mg PO Q4H Chlorpheniramine Maleate [Chlor-Trimeton] 4 mg PO Q4H PRN PRN Reason: Allergy Symptoms Clobetasol Propionate [Temovate 0.05% Cream] 1 applic TOPICAL BID Insulin Regular, Human [NovoLIN R] See Protocol SQ ACHS Lipase/Protease/Amylase [Margoth Perry 12,000 Units Capsule] 36,000 units PO TID- W/MEALS Loperamide [Imodium] 4 mg PO QID PRN PRN Reason: Diarrhea Ondansetron [Zofran] 4 mg PO Q6H PRN PRN Reason: Nausea Thiamine [Vitamin B-1] 100 mg PO DAILY Discharge Medication List Acetaminophen Tab [Tylenol] 650 mg PO Q4H 07/31/24 [History] Calcium Phos/D3/Magnesium/Zinc [Cgbauoz-Rcx-Wzck-Vitamin D3] 1 tab PO TID PRN 07/31/24 [History] Chlorpheniramine Maleate [Chlor-Trimeton] 4 mg PO Q4H PRN 07/31/24 [History] Clobetasol Propionate [Temovate 0.05% Cream] 1 applic TOPICAL BID 07/31/24 [History] Hyoscyamine Sulfate [Levsin] 0.125 mg PO QID PRN 07/31/24 [History] Ibuprofen [Motrin Ib] 600 mg PO Q6H PRN 07/31/24 [History] Insulin Glargine [Lantus Vial] 15 unit SQ HS 07/31/24 [History] Insulin Regular, Human [NovoLIN R] See Protocol SQ ACHS 07/31/24 [History] Lipase/Protease/Amylase [Margoth Perry 12,000 Units Capsule] 36,000 units PO TID- W/MEALS 07/31/24 [History] Loperamide [Imodium] 4 mg PO QID PRN 07/31/24 [History] Melatonin 10 mg PO HS 07/31/24 [History] Multivitamins, Thera [Multivitamin (formulary)] 1 tab PO DAILY 07/31/24 [History] Mylanta 30 ml PO Q4H PRN 07/31/24 [History] Ondansetron [Zofran] 4 mg PO Q6H PRN 07/31/24 [History] Thiamine [Vitamin B-1] 100 mg PO DAILY 07/31/24 [History] amLODIPine [Norvasc] 10 mg PO DAILY 07/31/24 [History] cloNIDine HCL [Catapres] 0.1 - 0.3 mg PO Q4H PRN 07/31/24 [History] traZODone HCL [Desyrel] 50 - 150 mg PO HS PRN 07/31/24 [History] Patient Instructions/Handouts: Alcohol Withdrawal (DC), Medical Clearance for Substance Abuse Treatment (DC) Activity/Diet/Wound Care/Special Instructions: Activity: As tolerated. Take breaks as needed. Diet: Heart healthy and carb consistent diet. Special Instructions: You have been medically optimized and cleared by neurology to return to [facility] rehab. [place] state law states no driving until seizure free for 6 months. It is also important to avoid climbing ladders, operating dangerous or heavy machinery or unsupervised swimming until seizure free for 6 months. This seizure was suspected to be provoked due to alcohol withdraw. If you have any further seizure activity in the future, you will need to be seen by a neurologist and have an EEG completed. Thank you for allowing us to participate in your care, it was truly a pleasure having you for our patient!!! Discharge Disposition: HOME SELF-CARE
[2024-08-02 11:39] LABS: Glucose,Whole Blood 248 mg/dL (70-110)
== END 2024-08-02 13:29 | disposition home or self-care (01) ==
LOC: EC 10:10 → 5NMEDONC 12:47 → 4SSUR 19:17
PROVIDERS: ADMIT Student in an Organized Health Care Education/Training Program; ATTEND Student in an Organized Health Care Education/Training Program
DX: F10.139 Alcohol abuse with withdrawal, unspecified (principal); R56.9 Unspecified convulsions; R17 Unspecified jaundice; R74.01 Elevation of levels of liver transaminase levels; E83.42 Hypomagnesemia; E11.649 Type 2 diabetes mellitus with hypoglycemia without coma; E11.65 Type 2 diabetes mellitus with hyperglycemia; I10 Essential (primary) hypertension; K86.1 Other chronic pancreatitis; R00.0 Tachycardia, unspecified; D69.6 Thrombocytopenia, unspecified; Z79.4 Long term (current) use of insulin; D75.89 Other specified diseases of blood and blood-forming organs; Z87.891 Personal history of nicotine dependence; Z79.899 Other long term (current) drug therapy
CPT/HCPCS: 96361 ×3; 96366 ×2; 96372 ×2; 96365; 96375; 99285; 36415; 93005; 80053 ×2; 83690; 83735 ×2; 84100; 85025; 85027; 70450; G0378 ×4; G0480; J2060; J2405; J1650 ×2; J3475; J1953; J1885; 80320